=== PATIENT | female | born 1975 | race Caucasian/White ===

== ENCOUNTER → 2016-07-07 | Outpatient (CLI) | payer OTHER ==
--- NOTE | 2016-07-07 14:20 | KCIC ---
PROCEDURE CT abdomen and pelvis without contrast. HISTORY Microscopic hematuria x2 months. Low back pain. TECHNIQUE Helical CT imaging of the abdomen and pelvis is performed without IV or oral contrast. PQRS: One or more the following individualized dose reduction techniques were utilized for the study: 1. Automated exposure control. 2. Adjustment of the mA and/or kV according to patient size. 3. Use of iterative reconstruction technique. COMPARISON None. FINDINGS Bases are clear. Cardiac size normal. Liver, gallbladder, spleen, pancreas, adrenal glands, and abdominal aortic caliber are normal. There is no renal, ureteral, or bladder calculus. There is no hydronephrosis or perinephric stranding. Stomach unremarkable. No dilated small bowel. Scattered stool in the colon. No colon wall thickening is seen. Appendix surgically absent. No abdominal adenopathy or free fluid. Urinary bladder is normal. There is a tampon in the vagina. Uterus unremarkable. Right ovary surgically absent. Small left ovarian follicle. No pelvic free fluid. No acute bone abnormality. IMPRESSION No CT explanation for patient's hematuria. Electronically signed by: Rafa Acevedo MD (Jul 07, 2016 14:19:20)
== END | disposition home or self-care (01) ==
LOC: KCIC CT 13:13
PROVIDERS: ATTEND Nurse Practitioner Family
DX: M54.5 Low back pain (principal)
CPT/HCPCS: 74176